=== PATIENT | female | born 1990 | race Native Hawaiian/Other Pacific Islander ===

== ENCOUNTER 2017-11-02 19:36 | Emergency (ER) | payer OTHER ==
[~2017-11-02] VITALS: Ht 157.5 cm; Wt 53.5 kg
[2017-11-02 20:55] LABS: PLATELET COUNT 143 K/uL (152-353)
== END 2017-11-02 21:35 | disposition home or self-care (01) ==
LOC: ED 19:36
DX: J11.1 Influenza due to unidentified influenza virus with other respiratory manifestations (principal)
CPT/HCPCS: 36415; 85027; 87077; 87081; 87185; 87804; 87880; 99283

== ENCOUNTER 2019-06-25 13:16 | Emergency (ER) | payer OTHER ==
[~2019-06-25] VITALS: Ht 157.5 cm; Wt 50.8 kg
[2019-06-25 13:20] VITALS: TEMP 98.4
[2019-06-25 14:11] LABS: PLATELET COUNT 200 K/uL (152-353)
[2019-06-25 14:24] LABS: POTASSIUM 4.6 mmol/L (3.6-5.2); SODIUM 142 mmol/L (136-145)
[2019-06-25 15:40] VITALS: BP 109/69
== END 2019-06-25 15:40 | disposition home or self-care (01) ==
LOC: ED 13:16
PROVIDERS: Hospitalist
DX: R07.89 Other chest pain (principal)
CPT/HCPCS: 36415; 80053; 82550; 83880; 84484; 85027; 85379; 85610; 85730; 93005; 96372; 99284; J1885

== ENCOUNTER 2019-09-03 23:36 | Observation (INO) | payer OTHER ==
[~2019-09-03] VITALS: Ht 157.5 cm; Wt 50.4 kg
[2019-09-03 23:53] VITALS: BP 103/69; TEMP 101.5
[2019-09-04 00:23] LABS: PLATELET COUNT 201 K/uL (152-353)
[2019-09-04 00:46] LABS: PARTIAL THROMBOPLASTIN TIME 26.6 SECONDS (24.5-33.6)
[2019-09-04 01:10] LABS: POTASSIUM 3.5 mmol/L (3.6-5.2); SODIUM 135 mmol/L (136-145)
[2019-09-04 04:10] VITALS: BP 99/59; TEMP 98.5; Ht 157.5 cm; Wt 50.4 kg
[2019-09-04 08:00] VITALS: BP 74/57; TEMP 97.9
== END 2019-09-04 12:35 | disposition home or self-care (01) ==
LOC: ED 23:36 → MED/SURG 09-04 01:00
PROVIDERS: Hospitalist; ADMIT Family Medicine
DX: J18.8 Other pneumonia, unspecified organism (principal); R07.89 Other chest pain; R06.09 Other forms of dyspnea; D72.828 Other elevated white blood cell count; E87.6 Hypokalemia; E87.1 Hypo-osmolality and hyponatremia; E87.3 Alkalosis; R06.02 Shortness of breath
CPT/HCPCS: 36600; 80053; 82550; 82805; 83880; 84484; 85027; 85379; 85610; 85730; 87040; 87502; 87651; 93005; 94640; 94664; 94760; 96365; 96366; 96367; 96375; 99220; 99284; G0378; J0456; J0696; J1650; J1885

== ENCOUNTER 2020-04-14 11:12 | Emergency (ER) | payer OTHER ==
[~2020-04-14] VITALS: Ht 157.5 cm; Wt 52.2 kg
[2020-04-14 11:41] LABS: PLATELET COUNT 200 K/uL (152-353)
[2020-04-14 11:53] LABS: POTASSIUM 4.4 mmol/L (3.6-5.2)
[2020-04-14 13:34] VITALS: BP 123/77; TEMP 98.9
== END 2020-04-14 13:35 | disposition home or self-care (01) ==
LOC: ED 11:12
PROVIDERS: Hospitalist
DX: N20.0 Calculus of kidney (principal); R11.2 Nausea with vomiting, unspecified
CPT/HCPCS: 36415; 80053; 81000; 81025; 83690; 85027; 96360; 96365; 96375; 99284; J0696; J1885; J2270; J2405; Q9963

== ENCOUNTER 2020-09-17 16:52 | Outpatient (CLI) | payer OTHER | END 2020-09-17 23:03 | disposition home or self-care (01) | LOC: RAD 16:52 | PROVIDERS: ATTEND Registered Nurse | DX: R14.0 Abdominal distension (gaseous) (principal) ==

== ENCOUNTER 2020-10-13 21:17 | Emergency (ER) | payer OTHER ==
[~2020-10-13] VITALS: Ht 157.5 cm; Wt 52.2 kg
== END 2020-10-13 21:27 | disposition home or self-care (01) ==
LOC: ED 21:17
DX: R10.84 Generalized abdominal pain (principal)
CPT/HCPCS: 99281

== ENCOUNTER 2023-02-01 12:37 | Emergency (ER) | payer OTHER ==
[~2023-02-01] VITALS: Ht 157.5 cm; Wt 51.7 kg
[2023-02-01 13:38] LABS: PLATELET COUNT 178 K/uL (152-353)
[2023-02-01 13:44] LABS: POTASSIUM 4.9 mmol/L (3.6-5.2)
[2023-02-01 15:30] VITALS: BP 107/67; TEMP 97.7
== END 2023-02-01 15:30 | disposition home or self-care (01) ==
LOC: ED 12:37
PROVIDERS: Internal Medicine
DX: K59.00 Constipation, unspecified (principal)
CPT/HCPCS: 80053; 80307; 81002; 81025; 85027; 99283